=== PATIENT | male | born 1965 | race Hispanic/Latino ===

== ENCOUNTER 2018-12-22 23:22 | Inpatient (IN) | payer MEDICARE ==
[~2018-12-22] VITALS: Ht 175.3 cm; Wt 104.3 kg
[2018-12-22 23:51] LABS: BASOPHILS # (AUTO) 0.1 (0.0-0.1); BASOPHILS % 0.5 % (0.0-1.0); EOSINOPHILS # (AUTO) 0.1 (0.0-0.4); EOSINOPHILS % 1.2 % (0.0-6.0); HEMATOCRIT 43.1 % (38.2-49.6); HEMOGLOBIN 14.9 g/dL (14.0-18.0); INR 2.24; LYMPHOCYTES # (AUTO) 2.5 (1.0-3.2); LYMPHOCYTES % 24.5 % (18.0-39.1); MEAN CORPUSCULAR HEMOGLOBIN 28.2 pg (28-32); MEAN CORPUSCULAR HGB CONC 34.6 g/dL (31-35); MEAN CORPUSCULAR VOLUME 81.6 fL (81-99); MONOCYTES # (AUTO) 1.2 (0.2-0.8); MONOCYTES % 11.9 % (4.4-11.3); NEUTROPHILS # (AUTO) 6.4 (2.1-6.9); NEUTROPHILS % 61.7 % (38.7-80.0); PLATELET COUNT 241 x10e3/uL (140-360); PROTHROMBIN TIME 25.5 seconds (11.9-14.5); RED BLOOD COUNT 5.28 x10e6/uL (4.3-5.7); RED CELL DISTRIBUTION WIDTH 14.1 % (11.7-14.4)
[2018-12-22 23:52] LABS: PARTIAL THROMBOPLASTIN TIME 49.1 seconds (23.8-35.5)
--- NOTE | 2018-12-22 23:58 | Diagnostic Imaging Report ---
Examination: Single AP view of the chest. COMPARISON: None. INDICATION: Stroke, shortness of breath for one day IMPRESSION: 1. Lines and Tubes: None 2. Lungs are grossly clear. No consolidation or effusion. 3. Cardiomediastinal silhouette is unremarkable. Pulmonary vasculature is normal. 4. No acute bony abnormalities. Midline sternotomy wires. Signed by: Dr. Orlando Cross M.D. on 12/22/2018 11:55 PM
[2018-12-23] VITALS (8 sets, daily range): BP systolic 96–144; BP diastolic 53–64
[2018-12-23] LABS: ALANINE AMINOTRANSFERASE 44 IU/L (0-55); ALBUMIN 4.4 g/dL (3.5-5.0); ALBUMIN/GLOBULIN RATIO 1.3 (0.8-2.0); ALKALINE PHOSPHATASE 53 IU/L (40-150); ANION GAP 16.4 mmol/L (8-16); BLOOD UREA NITROGEN 17 mg/dL (7-26); BUN/CREATININE RATIO 16 (6-25); CALCIUM 10.1 mg/dL (8.4-10.2); CARBON DIOXIDE 24 mmol/L (22-29); CHLORIDE 94 mmol/L (98-107); CREATINE KINASE 2470 IU/L (30-200); CREATININE, SERUM 1.09 mg/dL (0.72-1.25); EST GLOMERULAR FILTRATION RATE > 60 ML/MIN (60-); GLUCOSE 149 mg/dL (74-118); POTASSIUM 3.4 mmol/L (3.5-5.1); SODIUM 131 mmol/L (136-145)
[2018-12-23] LABS: CLARITY,URINE CLEAR (CLEAR); COLOR,URINE YELLOW (YELLOW)
[2018-12-23 00:01] LABS: BILIRUBIN,URINE NEGATIVE (NEGATIVE); KETONES,URINE NEGATIVE (NEGATIVE); LEUKOCYTE ESTERASE ,URINE NEGATIVE (NEGATIVE); NITRITE,URINE NEGATIVE (NEGATIVE); PROTEIN,URINE DIPSTICK NEGATIVE (NEGATIVE); URINE UROBILINOGEN 0.2 mg/dL (0.2 - 1)
[2018-12-23 00:02] LABS: BACTERIA,URINE FEW /HPF; EPITHELIAL CELLS,URINE FEW /LPF; RBC,URINE 0-5 /HPF (0-5); WBC,URINE (MAN) 0-5 /HPF (0-5)
[2018-12-23 00:03] LABS: AMPHETAMINES SCREEN,URINE NEGATIVE (NEGATIVE); BENZODIAZEPINES SCREEN,URINE POSITIVE (NEGATIVE); PHENCYCLIDINE SCREEN,URINE NEGATIVE (NEGATIVE)
[2018-12-23] MEDS ORDERED: POTASSIUM CHLORIDE 20 MEQ TAB CR PO STA (00:22)
[2018-12-23] MEDS ORDERED: SODIUM CHLORIDE 0.9% 1000ML 1,000 ML ONE (00:26)
[2018-12-23] MEDS ORDERED: ALPRAZOLAM1 MG PO (00:27)
[2018-12-23] MEDS ORDERED: PRAVASTATIN SOD40 MG PO (00:27)
[2018-12-23] MEDS ORDERED: WELCHOL625 MG PO (00:27)
[2018-12-23] MEDS ORDERED: WARFARIN SODIUM2 MG PO (00:27)
[2018-12-23] MEDS ORDERED: ULTRAM 50MG50 MG PO (00:28)
[2018-12-23] MEDS ORDERED: VITAMIN B-121000 MCG PO (00:28)
[2018-12-23] MEDS: SODIUM CHLORIDE 0.9% 1000ML 1,000 ML IV SCH ×6 (00:29→23:23)
[2018-12-23] MEDS ORDERED: TRAMADOL HCL 50 MG TAB PO PRN (00:30)
[2018-12-23] MEDS ORDERED: ONDANSETRON HCL INJ 2MG/ML 2ML 2 MG/ML VIAL IV PRN (00:30)
--- OUTSIDE RECORDS SUMMARY | 2018-12-23 00:38 | XMS REPORT ---
Author Author [facility] Address Unknown Phone Unavailable Care Team Providers Care President And Chief Executive Officer Name Role Phone Fadi PATEL Unavailable Unavailable Problems This patient has no known problems. Allergies, Adverse Reactions, Alerts This patient has no known allergies or adverse reactions. Medications This patient has no known medications. Results Test Description Test Time Test Comments Text Results Atomic Results Result Comments CHEST SINGLE (PORTABLE) 2018-12-22 23:54:00 [place] [address] Patient Name: ROSALBA ROBLES MR #: [id number] : 1965 Age/Sex: 53/M Req #: [id number] Adm Physician: Ordered by: MICHAEL PATEL MD Report #: [id number] Location: ER Room/Bed: Procedure: [id number] DX/CHEST SINGLE (PORTABLE) Exam Date: 12/22/18 Exam Time: 2335 REPORT STATUS: Signed Examination: Single AP view of the chest. C OMPARISON: None. INDICATION: Stroke, shortness of breath for one day IMPRESSION: 1. Lines and Tubes: None 2. Lungs are grossly clear. No consolidation or effusion. 3. Cardiomediastinal silhouette is unremarkable. Pulmonary vasculature is normal. 4. No acute bony abnormalities. Midline sternotomy wires. Signed by: Dr. Kajal Cross M.D. on 12/22/2018 11:55 PM Dictated By: KAJAL CROSS MD [id number] Transcribed By: FRANCIS on 12/22/183 COPY TO: MICHAEL PATEL MD
--- NOTE | 2018-12-23 01:38 | NUR ---
patient received to room 291 via stretcher from the er. vss. pain minimal at this time. patient c/o occasional leg cramps. ivf infusing at 200 cc hr per orders. patient voids clear yellow urine to urinal without difficulty. admit assessment/history obtained. patient encouraged to change clothes and put a hospital gown on. patient refuses to do so at this time. call weiner placed within reach. patient instructed to call for assistance when needed.
--- NOTE | 2018-12-23 06:34 | NUR ---
patient medicated with ultram 50 mg po for c/o generalized pain 01/14 at this time.
--- NOTE | 2018-12-23 07:10 | NUR ---
PATIENT IN BED RESTING WITH RESPIRATORY DISTRESS. PATIENT WEARING PERSONAL CLOTHES, ENCOURAGED TO CHANGE INTO GOWN, BUT HE REFUSED. BED IN LOWER POSITION, CALL LIGHT AT REACH.
[2018-12-23 08:58] LABS: CREATINE KINASE MB 16.9 ng/mL (0-5.0)
[2018-12-23] MEDS: ALPRAZOLAM 1 MG TAB PO SCH ×4 (09:09→22:00)
[2018-12-23] MEDS: WARFARIN SOD 2 MG TAB PO SCH (09:09)
[2018-12-23] MEDS: POTASSIUM CHLORIDE 20 MEQ TAB CR PO SCH (09:09)
--- NOTE | 2018-12-23 11:19 | NUR ---
PATIENT AMBULATED TO THE RESTROOM AND BACK TO BED. IV FLUID INFUSING ORDERED. BED IN LOWER POSITION, CALL LIGHT AT REACH.
--- NOTE | 2018-12-23 13:03 | NUR ---
H&P cc: muscle ache HPI: 53yoM, PCP /Jonatan Perdomo Clive, developed muscle ache, found to have acute rhabdomyolysis. Pt admits working in [employer], felt dehydrated with cehst tightness. Drank 3 gatorade and lots of water, but still had worsened symptoms, so came to hospital. PMH: anxiety d/o, Warfarain use, Obesity, s/p AVR-mechanical, rhabdomyolysis in 2018 PSHx: AVR-mechanical in 2012, knee x2, hernia, right eye, rhinoplasty/nose related Allergies; see emr Fh/SH; single; no cigs/etoh med see OCT ROS: no f/c/s/N/V/D/MAXWELL/vision changes/sob/N/dizziness/skin rash v/s: revd PE: tired appearing anicteric ns1s2 mod bs soft nt nd no e/t a&ox3; gracia skin dry n. affect Minimally tender chest wall labs/meds; revd A/P: Acute rhabdomyolysis Hypokalemia Hyponatremia Anxiety d/o Hx AVR-mechanical Hyperglycemia Obesity BMI 34 PLAN ivf; hba1c/lipids inr therapeutic- cont warfarin Prop: ray Solorzano MD, PhD.
--- NOTE | 2018-12-23 13:11 | NUR ---
Went to see pt for discharge planning and to explain [facility] letter. Not available at this time. Will attempt to go back later today.
--- NOTE | 2018-12-23 15:05 | NUR ---
MD IN TO SEE PATIENT NEW ORDER RECEIVED TO GIVE 2L NS BOLUS, THEN CONTINUE WITH PREVIEWS ORDER.
[2018-12-23] MEDS: MORPHINE SULFATE INJ 4 MG/ML INJ 1ML IV PRN ×2 (16:15→20:58)
[2018-12-23 17:03] LABS: CREATINE KINASE MB 13.6 ng/mL (0-5.0)
--- NOTE | 2018-12-23 17:28 | NUR ---
2L BOLUS COMPLETED AT THIS TIME. PATIENT IN BED TALKING ON THE PHONE, IV FLUID INFUSING ORDERED.
--- NOTE | 2018-12-23 19:08 | NUR ---
PT IS RESTING IN BED. NO RESPIRATORY DISTRESS NOTED. BED IN THE LOWEST POSITION, LOCKED, BED ALARM ON, AND CALL LIGHT WITHIN REACH. WILL CONTINUE TO MONITOR.
[2018-12-24] VITALS: BP 96/51
[2018-12-24 04:00] VITALS: BP 99/58
[2018-12-24] MEDS: SODIUM CHLORIDE 0.9% 1000ML 1,000 ML IV SCH ×2 (04:08→08:08)
[2018-12-24 06:12] LABS: BASOPHILS % 0.6 % (0.0-1.0); EOSINOPHILS # (AUTO) 0.2 (0.0-0.4); EOSINOPHILS % 3.2 % (0.0-6.0); HEMATOCRIT 41.3 % (38.2-49.6); HEMOGLOBIN 13.2 g/dL (14.0-18.0); LYMPHOCYTES # (AUTO) 1.5 (1.0-3.2); LYMPHOCYTES % 23.9 % (18.0-39.1); MEAN CORPUSCULAR HEMOGLOBIN 27.8 pg (28-32); MEAN CORPUSCULAR VOLUME 86.9 fL (81-99); MONOCYTES # (AUTO) 0.6 (0.2-0.8); MONOCYTES % 10.1 % (4.4-11.3); NEUTROPHILS # (AUTO) 3.9 (2.1-6.9); PLATELET COUNT 181 x10e3/uL (140-360); RED BLOOD COUNT 4.75 x10e6/uL (4.3-5.7); RED CELL DISTRIBUTION WIDTH 14.7 % (11.7-14.4)
[2018-12-24 06:30] LABS: ALANINE AMINOTRANSFERASE 33 IU/L (0-55); ALBUMIN 3.1 g/dL (3.5-5.0); ALBUMIN/GLOBULIN RATIO 1.2 (0.8-2.0); ALKALINE PHOSPHATASE 35 IU/L (40-150); ANION GAP 8.4 mmol/L (8-16); BLOOD UREA NITROGEN 10 mg/dL (7-26); BUN/CREATININE RATIO 13 (6-25); CARBON DIOXIDE 24 mmol/L (22-29); CHLORIDE 111 mmol/L (98-107); CREATININE, SERUM 0.77 mg/dL (0.72-1.25); EST GLOMERULAR FILTRATION RATE > 60 ML/MIN (60-); GLUCOSE 105 mg/dL (74-118); POTASSIUM 4.4 mmol/L (3.5-5.1); SODIUM 139 mmol/L (136-145)
[2018-12-24 07:00] VITALS: BP 119/70
--- NOTE | 2018-12-24 07:00 | NUR ---
Bedside rounding completed and the pt c/o pain in the abd and Dr. Solorzano was notified and orders received for boluses as well as different pain mes.
[2018-12-24] MEDS ORDERED: HYDROMORPHONE 1MG/1ML INJ IV PRN (07:45)
[2018-12-24 08:00] VITALS: BP 119/70
[2018-12-24] MEDS ORDERED: HYDROMORPHONE 2MG/ML 2 MG/ML ML IV PRN (08:00)
[2018-12-24] MEDS: POTASSIUM CHLORIDE 20 MEQ TAB CR PO SCH (08:08)
[2018-12-24] MEDS: ALPRAZOLAM 1 MG TAB PO SCH (08:08)
[2018-12-24] MEDS: WARFARIN SOD 2 MG TAB PO SCH (08:08)
[2018-12-24 10:38] VITALS: BP 119/70
--- NOTE | 2018-12-24 11:18 | NUR ---
The pt. reported that the pain med prescribed is insufficient for his pain control and requested the dr. be notified. He prefaced his request with "Not that I am a pain seeker but that 0.5mg did not help my pain at all and I'm just trying to protect my heart. A call was placed to the for further orders and the pt. notified.
--- NOTE | 2018-12-24 11:41 | NUR ---
The pt. came to the nurses station stating that "my daughter has power of director of retail marketing over me and she advised me to leave and go to a hospital that has the proper services for me". I notified Dr. Solorzano when he called me back for additional pain med. The pt. signed the AMA and left on his own to meet his daughter whom he states is in the parking lot waiting for him.
== END 2018-12-24 11:44 | disposition left against medical advice (07) | DRG 558 ==
LOC: ER 23:22 → ERHOLD 12-23 00:35 → MED/SURG3 12-23 01:13 → OBSVTOIN 12-24 10:33
PROVIDERS: ADMIT Internal Medicine; ATTEND Internal Medicine
DX: M62.82 Rhabdomyolysis (principal); E87.1 Hypo-osmolality and hyponatremia; E86.0 Dehydration; E87.6 Hypokalemia; R73.9 Hyperglycemia, unspecified; E66.9 Obesity, unspecified; Z68.34 Body mass index [BMI] 34.0-34.9, adult; F41.9 Anxiety disorder, unspecified; E78.5 Hyperlipidemia, unspecified; Z79.01 Long term (current) use of anticoagulants; Z95.2 Presence of prosthetic heart valve
CPT/HCPCS: 36415; 71045; 80053; 80061; 80307; 81001; 82550; 82553; 83036; 84484; 85025; 85610; 85730; 93005; 99284; G0378; J2270; J7030